=== PATIENT | female | born 1965 | race American Indian/Alaskan Native ===

== ENCOUNTER 2016-05-31 21:27 | Emergency (ER) | payer MEDICARE ==
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
[2016-06-01] MEDS ORDERED: MOTRIN PO ONE (01:33)
[2016-06-01 01:44] VITALS: BP 110/72
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
== END 2016-06-01 03:05 | disposition home or self-care (01) ==
LOC: ED 21:27
DX: S20.222A Contusion of left back wall of thorax, initial encounter (principal); S39.92XA Unspecified injury of lower back, initial encounter; I10 Essential (primary) hypertension; F31.9 Bipolar disorder, unspecified; Z98.51 Tubal ligation status; V89.2XXA Person injured in unspecified motor-vehicle accident, traffic, initial encounter; Y93.89 Activity, other specified; Y99.8 Other external cause status; Y92.89 Other specified places as the place of occurrence of the external cause
CPT/HCPCS: 72070; 99283